=== PATIENT | male | born 1990 | race African-American/Black ===

== ENCOUNTER 2021-01-11 20:17 | Emergency (ER) | payer OTHER ==
[~2021-01-11] VITALS: Ht 170.2 cm; Wt 61.4 kg
[2021-01-11 20:25] VITALS: BP 109/59
[2021-01-11] MEDS ORDERED: CYCL-1 PO (22:28)
== END 2021-01-11 22:54 | disposition home or self-care (01) ==
LOC: ER 20:18
DX: S06.0X0A Concussion without loss of consciousness, initial encounter (principal); R51.9 Headache, unspecified; M54.2 Cervicalgia; Z79.899 Other long term (current) drug therapy; V49.9XXA Car occupant (driver) (passenger) injured in unspecified traffic accident, initial encounter; Y93.89 Activity, other specified; Y92.89 Other specified places as the place of occurrence of the external cause; Y99.8 Other external cause status
CPT/HCPCS: 99283

== ENCOUNTER → 2021-01-30 | Emergency (ER) | payer OTHER ==
[~2021-01-30] MED LIST: CYCL-1 PO
== END | disposition left against medical advice (07) ==
LOC: ER 23:16
DX: Z53.21 Procedure and treatment not carried out due to patient leaving prior to being seen by health care provider (principal)
CPT/HCPCS: 99281